=== PATIENT | male | born 1985 | race Asian ===

== ENCOUNTER 2018-09-08 07:40 | Emergency (ER) | payer OTHER ==
[~2018-09-08] VITALS: Ht 167.6 cm; Wt 76.7 kg
[2018-09-08 07:45] VITALS: BP 131/87; Ht 167.6 cm; Wt 76.7 kg
== END 2018-09-08 08:26 | disposition home or self-care (01) ==
LOC: ED 07:40
DX: J32.8 Other chronic sinusitis (principal)

== ENCOUNTER 2018-09-17 02:57 | Emergency (ER) | payer OTHER ==
[~2018-09-17] VITALS: Ht 162.6 cm; Wt 77.2 kg
[2018-09-17 03:54] VITALS: BP 123/81
== END 2018-09-17 03:54 | disposition home or self-care (01) ==
LOC: ED 02:57
DX: J02.9 Acute pharyngitis, unspecified (principal)